=== PATIENT | male | born 1960 | race Caucasian/White ===

== ENCOUNTER → 2016-12-06 | Outpatient (REF) | payer OTHER ==
[2016-12-06 18:30] LABS: REASON FOR REVIEW COMPREHENSIVE REVIEW
== END ==
LOC: M LAB REF 16:36
PROVIDERS: ATTEND Internal Medicine
DX: D72.9 Disorder of white blood cells, unspecified (principal)

== ENCOUNTER → 2016-12-26 | Outpatient (REF) | payer OTHER ==
[2016-12-26 15:28] LABS: REASON FOR REVIEW COMPREHENSIVE REVIEW
== END ==
LOC: M LAB REF 13:30
PROVIDERS: ATTEND Internal Medicine
DX: D72.9 Disorder of white blood cells, unspecified (principal)

== ENCOUNTER 2018-08-11 19:47 | Emergency (ER) | payer OTHER, SELFPAY ==
[2018-08-11] MEDS ORDERED: AMIODARONE HCL 150 MG/100 ML PREMIXED BAG (NEXTERONE) ONE (19:48)
[2018-08-11] MEDS ORDERED: EPINEPHrine 1MG/10ML SYRINGE 1.5IN IV STA ×2 (19:53→19:59)
[2018-08-11] MEDS ORDERED: SODIUM BICARBONATE 8.4% INJ 50 ML SYRINGE IV STA (19:57)
[2018-08-11] MEDS ORDERED: MAGNESIUM SULFATE 1 GM/100 ML D5W BAG (10MG/ML) (J3475) As Ordered ONE (19:57)
[2018-08-11] MEDS ORDERED: MAGNESIUM SULFATE 1GM/2ML (8MEQ/2ML) VIAL (J3475) IV ONE (20:00)
[2018-08-11] MEDS ORDERED: AMIODARONE 150MG/3ML INJ (J0282) IVP STA (20:06)
[2018-08-11] MEDS ORDERED: ENAL10TA2 (20:11)
[2018-08-11] MEDS ORDERED: HYDR2.5C (20:11)
[2018-08-11] MEDS ORDERED: PROAAER10 (20:11)
[2018-08-11] MEDS ORDERED: METO25TA4 (20:11)
[2018-08-11] MEDS ORDERED: ELIQ5TAB (20:11)
[2018-08-11] MEDS ORDERED: FLUTISP (20:11)
[2018-08-11] MEDS ORDERED: MAGNESIUM *L&D* 4 GM/100 ML BAG (40MG/ML) (J3475) IV ONE (20:15)
== END 2018-08-11 23:02 | disposition expired ==
LOC: EDSEX 19:47 → M ED 19:47 → EDBD 19:47 → M ED 23:02
DX: I46.9 Cardiac arrest, cause unspecified (principal)
CPT/HCPCS: 31500; 92950; 96374; 96375; 99291; J0282; J3475

== ENCOUNTER → 2018-08-13 | Outpatient (REF) ==
[~2018-08-13] MED LIST: ELIQ5TAB; ENAL10TA2; FLUTISP; HYDR2.5C; METO25TA4; PROAAER10
== END ==
LOC: M LAB 14:34